=== PATIENT | female | born 1995 | race Caucasian/White ===

== ENCOUNTER 2020-04-29 18:09 | Inpatient (IN) ==
[2020-04-29] MEDS ORDERED: Acetaminophen 325 MG TABLET PO ONE (18:31)
[2020-04-29] MEDS ORDERED: Lidocaine 1% 20 ML MDV INFILT PRN (18:47)
[2020-04-29] MEDS ORDERED: Ondansetron 4 MG/2 ML VIAL IVP PRN (18:47)
[2020-04-29] MEDS ORDERED: *HR* FentaNYL (PF) 100 MCG/2 ML VIAL IVP PRN (18:47)
[2020-04-29] MEDS ORDERED: Naloxone 0.4 MG/ML INJ IVP PRN (18:47)
[2020-04-29] MEDS ORDERED: Metoclopramide 10 MG/2 ML VIAL IVP PRN (18:47)
[2020-04-29] MEDS ORDERED: Famotidine 20 MG/2 ML VIAL IVP PRN (18:47)
[2020-04-29] MEDS ORDERED: miSOPROStoL 25 MCG TABLET VG ONE (18:56)
[2020-04-29 19:25] LABS: Basophils % 0.3 %; Eosinophils # 0.3 K/mcL (0.0-0.6); Hemoglobin 10.9 g/dL (11.5-15.4); Lymphocytes # 1.5 K/mcL (0.6-4.6); Mean Corpuscular HGB Conc 32.1 g/dL (31.6-35.5); Mean Corpuscular Hemoglobin 27.5 pg (28.0-33.3); Mean Corpuscular Volume 85.9 fL (83.0-100.0); Mean Platelet Volume 11.3 fL (9.4-12.4); Monocytes # 0.7 K/mcL (0.0-1.3); Monocytes % 7.9 %; Neutrophils # 6.8 K/mcL (1.6-8.9); Platelet Count 260 K/mcL (140-400); Red Blood Count 3.96 M/mcL (3.82-4.97); Red Cell Distribution Width 14.1 % (11.5-14.5); Segmented Neutrophils % 71.8 %; White Blood Count 9.4 K/mcL (4.3-11.1)
[2020-04-29 19:36] LABS: Amphetamine Screen,Urine Negative ng/mL (Cutoff=1000); Barbiturate Screen,Urine Negative ng/mL (Cutoff=200); Benzodiazepines Screen,Urine Negative ng/mL (Cutoff=200); Cannabinoid Screen,Urine Negative ng/mL (Cutoff = 50); Cocaine Screen,Urine Negative ng/mL (Cutoff= 300); Opiate Screen,Urine Negative ng/mL (Cutoff=300); Phencyclidine Screen,Urine Negative ng/mL (Cutoff=25)
[2020-04-29] MEDS: Ringers Solution, Lactated 1,000 ML IVC SCH ×2 (20:47→22:52)
[2020-04-30] MEDS ORDERED: Bupivacaine-MPF 0.25% 10 ML VIAL EP ONE (01:33)
[2020-04-30] MEDS ORDERED: EPHEDrine 50 MG/ML VIAL IVP PRN (01:33)
[2020-04-30] MEDS ORDERED: *HR* FentaNYL (PF) 100 MCG/2 ML VIAL EP ONE (01:33)
[2020-04-30] MEDS ORDERED: *HR* FentaNYL (PF) 100 MCG/2 ML VIAL ONE (01:36)
[2020-04-30] MEDS ORDERED: Bupivacaine-MPF 0.25% 10 ML VIAL ONE (01:36)
[2020-04-30] MEDS ORDERED: Ringers Solution, Lactated 1,000 ML ONE (01:43)
[2020-04-30] MEDS ORDERED: Epidural Premix (fent/bupiv) 110 ML EP SCH (01:45)
[2020-04-30] MEDS ORDERED: Oxytocin 20 units/ LR 1000 mL 20 UNIT/1,000 ML BAG IVC SCH ×2 (12:45→22:04)
[2020-04-30] MEDS ORDERED: D5% in Lactated Ringers 1,000 ML IVC SCH (14:00)
[2020-04-30] MEDS ORDERED: Acetaminophen 325 MG TABLET PO PRN (22:04)
[2020-04-30] MEDS ORDERED: Benzocaine/Menthol 56 GM AEROSOL SPRAY TP PRN (22:04)
[2020-04-30] MEDS: Ibuprofen 600 MG TABLET PO PRN (22:10)
[2020-04-30] MEDS: Ringers Solution, Lactated 1,000 ML IVC SCH (23:11)
[2020-05-01] MEDS: Ibuprofen 600 MG TABLET PO PRN ×2 (03:00→08:05)
[2020-05-01 08:03] VITALS: BP 101/53
[2020-05-01] MEDS ORDERED: Loratadine 10 MG TABLET PO SCH (09:00)
[2020-05-01] MEDS ORDERED: Prenatal Vit/FA 1 EACH TABLET PO SCH (09:00)
== END 2020-05-01 13:34 | disposition home or self-care (01) | DRG 807 ==
LOC: 1NENULAB 18:09 → 1NENUPED 04-30 22:00
PROVIDERS: ADMIT Student in an Organized Health Care Education/Training Program; ATTEND Student in an Organized Health Care Education/Training Program